=== PATIENT | male | born 1990 | race Caucasian/White ===

== ENCOUNTER 2017-05-29 14:06 | Emergency (ER) | payer SELFPAY ==
[~2017-05-29] VITALS: Ht 170.2 cm; Wt 127.0 kg
[~2017-05-29 14:06] MED LIST: AUGMENTIN875 M1 PO; HYDROCODON-ACE1 EAC7 PO; LAMISIL250 MG PO; LISINOPRIL10 MG PO; NO MEDICATIONS; SILVADENE TOP; SKELAXIN PO; VOLTAREN75 MG PO
== END 2017-05-29 18:43 | disposition home or self-care (01) ==
LOC: CFTX 14:06 → CED 14:06 → CFTX 18:36
DX: L03.115 Cellulitis of right lower limb (principal); I10 Essential (primary) hypertension; J45.909 Unspecified asthma, uncomplicated
CPT/HCPCS: 99283